=== PATIENT | male | born 1995 | race African-American/Black ===

== ENCOUNTER 2022-09-30 10:06 | Emergency (ER) | payer MEDICAID ==
[~2022-09-30] VITALS: Ht 185.4 cm; Wt 69.7 kg
[2022-09-30 10:14] VITALS: BP 127/90
== END 2022-09-30 12:51 | disposition left against medical advice (07) ==
LOC: EMS 10:17
DX: R36.9 Urethral discharge, unspecified (principal); Z53.21 Procedure and treatment not carried out due to patient leaving prior to being seen by health care provider